=== PATIENT | female | born 1940 | race Caucasian/White ===

== ENCOUNTER 2021-03-29 08:38 | Day surgery (SDC) | payer MEDICARE, SELFPAY ==
--- NOTE | 2021-03-24 12:21 | MHC.SHP ---
Pre-Procedural Eval Section A The patient is an INPATIENT: No The History & Physical has been completed within 30 days and I have reviewed it.: Yes Section B Chief Complaint: Cataract Right Eye Allergies: Allergies Allergy/AdvReac Type Severity Reaction Status Date / Time codeine [Codeine] Allergy Mild SLEEPLESSNESS Verified 03/22/21 15:33 DUE TO NARCOLEPSY/AGITATION Plan Diagnosis/Plan: Unchanged I have reviewed the history and physical and performed a pertinent physical examination on my patient. No changes have occurred unless specified.
--- NOTE | 2021-03-26 09:41 | P.CONAN_ITS ---
Documented by User: Gena Cruz 03/26/21 14:36 HPI - Anesthesia Eval Consult details Narrative: 80yo F for Right Cataract Extraction IOL Insertion No prev cataract on record PCP cleared s/p bilat mastectomy NO IV/BP on LEFT PMFSH Past Medical History Medical History Arthritis COVID-19 vaccine administered Diabetes Elevated cholesterol History of breast cancer History of chemotherapy HTN (hypertension) Hx of cancer of lung Hx of radiation therapy Surgical History Surgical History H/O colonoscopy History of carpal tunnel release History of lumbar laminectomy Hx of amputation of lesser toe Hx of bilateral mastectomy Hx of breast lump removal Social History Social History Household Members: Family Housing: House Are you a primary direct care counselor to a significant other at home: No Do you presently have visiting nurse or other home services: No Smoking Status: Former smoker Tobacco Type: Cigarette Smoking Quit Date: 1999 Use of substances other than those prescribed or required for medical reasons: No Have you been hit, kicked, punched, or otherwise hurt by someone within the past year? If so, by whom?: No Are you DNR?: No Advance Directives Information Provided: No Recently lost weight without trying: No Eating poorly because of decreased appetite: No Nutrition Risks: Surgical patient >75years Poor oral hygiene: No (upper & lower full dentures) Meds Allergies Allergy/AdvReac Type Severity Reaction Status Date / Time codeine [Codeine] Allergy Mild SLEEPLESSNESS Verified 03/22/21 15:33 DUE TO NARCOLEPSY/AGITATION Home Medications Medication Instructions Recorded Confirmed Last Taken Type aspirin [Aspirin Low Dose] 81 mg PO DAILY 03/22/21 03/22/21 Unknown History atorvastatin 40 mg PO BEDTIME 03/22/21 03/22/21 Unknown History biotin 10,000 mcg PO DAILY 03/22/21 03/22/21 Unknown History hydrochlorothiazide 12.5 mg PO DAILY 03/22/21 03/22/21 Unknown History insulin degludec [Tresiba 18 unit SUBCUT BEDTIME 03/22/21 03/22/21 Unknown History FlexTouch U-100] lisinopril 40 mg PO DAILY 03/22/21 03/22/21 Unknown History metformin 1,000 mg PO BID 03/22/21 03/22/21 Unknown History methylphenidate HCl 5 mg PO 5XD 03/22/21 03/22/21 Unknown History Exam Exam Date and Time: March 26, 2021 0941 Height,Weight and Vital Signs: Height 5 ft 3.75 in Assessment and Plan Assessment Anesthesia Assessment: Chart Reviewed Documented by User: Jen Ford 03/29/21 10:30 [facility] Past Medical History Medical History Arthritis COVID-19 vaccine administered Diabetes Elevated cholesterol History of breast cancer History of chemotherapy HTN (hypertension) Hx of cancer of lung Hx of radiation therapy Family History Family history of problems with anesthesia: No Surgical History Surgical History H/O colonoscopy History of carpal tunnel release History of lumbar laminectomy Hx of amputation of lesser toe Hx of bilateral mastectomy Hx of breast lump removal History of Problems with Anesthesia: No Social History Social History Household Members: Family Housing: House Are you a primary direct care counselor to a significant other at home: No Do you presently have visiting nurse or other home services: No Smoking Status: Former smoker Tobacco Type: Cigarette Smoking Quit Date: 1999 Use of substances other than those prescribed or required for medical reasons: No Have you been hit, kicked, punched, or otherwise hurt by someone within the past year? If so, by whom?: No Are you DNR?: No Advance Directives Information Provided: No Recently lost weight without trying: No Eating poorly because of decreased appetite: No Nutrition Risks: Surgical patient >75years Poor oral hygiene: No (upper & lower full dentures) Meds Allergies Allergy/AdvReac Type Severity Reaction Status Date / Time codeine [Codeine] Allergy Mild SLEEPLESSNESS Verified 03/22/21 15:33 DUE TO NARCOLEPSY/AGITATION Home Medications Medication Instructions Recorded Confirmed Last Taken Type aspirin [Aspirin Low Dose] 81 mg PO DAILY 03/22/21 03/22/21 Unknown History atorvastatin 40 mg PO BEDTIME 03/22/21 03/22/21 Unknown History biotin 10,000 mcg PO DAILY 03/22/21 03/22/21 Unknown History hydrochlorothiazide 12.5 mg PO DAILY 03/22/21 03/22/21 Unknown History insulin degludec [Tresiba 18 unit SUBCUT BEDTIME 03/22/21 03/22/21 Unknown History FlexTouch U-100] lisinopril 40 mg PO DAILY 03/22/21 03/22/21 Unknown History metformin 1,000 mg PO BID 03/22/21 03/22/21 Unknown History methylphenidate HCl 5 mg PO 5XD 03/22/21 03/22/21 Unknown History Exam Height,Weight and Vital Signs: Vital Signs Temp Pulse Resp BP Pulse Ox 03/29/21 10:14 97.1 F 70 18 141/75 H 97 Pertinent Lab Results Pertinent Lab Results: POC 127 Airway Mallampati Class: II TM Dist: >3cm Neck ROM: Full Denture: Upper and Lower Heart: RRR Lungs: CTAB Assessment and Plan Assessment Anesthesia Assessment: Anesthesia Plan Discussed and Chart Reviewed Final Anesthetic Review NPO: Yes ASA Class: III Final Preanesthetic Review: No Changes in Pt Med Stat, Meds/Allgs Chart Reviewed, Consent Obtained/Reviewed and Anes Risks/Benef Reviewed Patient Risk: Intermediate Procedure Risk: Low Assessment/Block/Sedation in SS: Assess/Block/Sedation-SS Anesthetic Plan Anesthetic Plan: MAC: Disposition: Standard PACU
[2021-03-29 10:03] VITALS: BMI 26.6
[2021-03-29 10:14] VITALS: BP 141/75; PULSE 70; RESP 18; TEMP 36.2; O2SAT 97
[2021-03-29] MEDS: Lactated Ringers 500 ML 50 ML IV (10:25)
[2021-03-29] MEDS: Tetracaine HCl/PF 0.5% Oph Sol 4 ML DROPS 1 DROP EYE-RIGHT (10:25)
[2021-03-29] MEDS: Phenylephrine HCL 2.5% Oph SoL 2 ML BOTTLE 1 DROP EYE-RIGHT ×2 (10:26→10:30)
[2021-03-29] MEDS: Tropicamide 1 % Ophth Sol 3 ML BTL 1 DROP EYE-RIGHT ×3 (10:28→10:35)
[2021-03-29 10:32] LABS: Glucose, Whole Blood 127 mg/dL (60-115)
--- NOTE | 2021-03-29 11:17 | HO.PNOPHT ---
Ophthalmology Procedure Procedure Date of Service: 03/29/21 Ophthalmology Viscoelastic: Healon Duet Dual Pack Pro Ophthalmology Lenses: TECNIS [id number] (23.5) Procedure Notes: PREOPERATIVE DIAGNOSIS: Decreased visual acuity right eye secondary to cataract POSTOPERATIVE DIAGNOSIS: Same PROCEDURE: Right cataract extraction with intraocular lens insertion SURGEON: Jarvis Valdovinos M.D. ANESTHESIA: Topical/MAC ESTIMATED BLOOD LOSS: None COMPLICATIONS: None After obtaining informed consent, the patient was brought to the operating room suite and placed in the supine position. After adequate sedation per anesthesia, topical drops of Tetracaine were given to the right eye. The eye was then prepped and draped in the usual sterile fashion. The operating room microscope was then positioned over the operative eye and a lid speculum placed. A paracentesis was created. Viscoelastic was then instilled into the anterior chamber. A three plane incision was then created temporally, utilizing a 2.85 mm keratome. Capsulotomy forceps were then utilized to create a circular tear capsulotomy. Hydrodissection and hydrodelineation were carried out until adequate mobilization of the nucleus occurred. Phacoemulsification was then utilized to remove the dense central nucleus followed by removal of the cortical material utilizing the automated aspiration irrigation unit. Viscoelastic was instilled into the posterior capsular bag followed by placement of a posterior chamber intraocular lens without difficulty. The residual Viscoelastic was then removed utilizing the automated IA machine. The wound was checked and found to be watertight. The patient tolerated the procedure well and the lid speculum was removed. Intracameral injection of Vigamox 0.1 mL followed by a subtenon injection of Kenalog-40 0.2 mL were administered. The patient will be seen in the a.m.
[2021-03-29 11:39] VITALS: BP 152/70; PULSE 69; RESP 14; TEMP 36.3; O2SAT 96
== END 2021-03-29 11:59 | disposition home or self-care (01) ==
PROVIDERS: PCP Internal Medicine; Visit Provider Ophthalmology
PROC: (CPT 66985; principal; 2021-03-29 10:50)
DX: H25.11 Age-related nuclear cataract, right eye (principal); H40.033 Anatomical narrow angle, bilateral; H52.4 Presbyopia; I10 Essential (primary) hypertension; E11.9 Type 2 diabetes mellitus without complications; D64.9 Anemia, unspecified; Z85.3 Personal history of malignant neoplasm of breast; Z85.118 Personal history of other malignant neoplasm of bronchus and lung; Z92.21 Personal history of antineoplastic chemotherapy; Z92.3 Personal history of irradiation; Z79.84 Long term (current) use of oral hypoglycemic drugs; Z79.899 Other long term (current) drug therapy; Z87.891 Personal history of nicotine dependence
CPT/HCPCS: 66984; 82947; J2250; J3010; J3300; V2632

== ENCOUNTER 2021-04-12 10:26 | Day surgery (SDC) | payer MEDICARE, SELFPAY ==
[2021-03-22 15:39] VITALS: BMI 26.6
--- NOTE | 2021-04-07 12:27 | HO.ANESPROP2 ---
Documented by User: Gena Cruz 04/07/21 12:28 HPI - Anesthesia Eval Consult details Narrative: 80yo F for Left Cataract Extraction IOL Insertion Right eye 03/29/21 with TIVA: Fent 25, Midaz 1 PCP cleared s/p bilat mastectomy NO IV/BP on LEFT PMFSH Past Medical History Medical History Arthritis COVID-19 vaccine administered Diabetes Elevated cholesterol History of breast cancer History of chemotherapy HTN (hypertension) Hx of cancer of lung Hx of radiation therapy Family History Family history of problems with anesthesia: No Surgical History Surgical History H/O colonoscopy History of carpal tunnel release History of lumbar laminectomy Hx of amputation of lesser toe Hx of bilateral mastectomy Hx of breast lump removal History of Problems with Anesthesia: No Social History Social History Household Members: Family Housing: House Are you a primary college and career counselor to a significant other at home: No Do you presently have visiting nurse or other home services: No Smoking Status: Former smoker Tobacco Type: Cigarette Smoking Quit Date: 1999 Use of substances other than those prescribed or required for medical reasons: No Have you been hit, kicked, punched, or otherwise hurt by someone within the past year? If so, by whom?: No Are you DNR?: No Advance Directives Information Provided: No Recently lost weight without trying: No Eating poorly because of decreased appetite: No Nutrition Risks: Surgical patient >75years Patient : No Poor oral hygiene: No (upper 7 lower full denture) Meds Allergies Allergy/AdvReac Type Severity Reaction Status Date / Time codeine [Codeine] Allergy Mild SLEEPLESSNESS Verified 03/22/21 15:33 DUE TO NARCOLEPSY/AGITATION Home Medications Medication Instructions Recorded Confirmed Last Taken Type aspirin [Aspirin Low Dose] 81 mg PO DAILY 03/22/21 03/22/21 Unknown History atorvastatin 40 mg PO BEDTIME 03/22/21 03/22/21 Unknown History biotin 10,000 mcg PO DAILY 03/22/21 03/22/21 Unknown History hydrochlorothiazide 12.5 mg PO DAILY 03/22/21 03/22/21 Unknown History insulin degludec [Tresiba 18 unit SUBCUT BEDTIME 03/22/21 03/22/21 Unknown History FlexTouch U-100] lisinopril 40 mg PO DAILY 03/22/21 03/22/21 Unknown History metformin 1,000 mg PO BID 03/22/21 03/22/21 Unknown History methylphenidate HCl 5 mg PO 5XD 03/22/21 03/22/21 Unknown History Exam Exam Date and Time: April 07, 2021 1227 Height,Weight and Vital Signs: Height 5 ft 3.75 in Weight 69.853 kg Assessment and Plan Assessment Anesthesia Assessment: Chart Reviewed Documented by User: Jen Ford 04/12/21 12:51 PMFSH Past Medical History Medical History Arthritis COVID-19 vaccine administered Diabetes Elevated cholesterol History of breast cancer History of chemotherapy HTN (hypertension) Hx of cancer of lung Hx of radiation therapy Surgical History Surgical History H/O colonoscopy History of carpal tunnel release History of lumbar laminectomy Hx of amputation of lesser toe Hx of bilateral mastectomy Hx of breast lump removal Social History Social History Household Members: Family Housing: House Are you a primary college and career counselor to a significant other at home: No Do you presently have visiting nurse or other home services: No Smoking Status: Former smoker Tobacco Type: Cigarette Smoking Quit Date: 1999 Use of substances other than those prescribed or required for medical reasons: No Have you been hit, kicked, punched, or otherwise hurt by someone within the past year? If so, by whom?: No Are you DNR?: No Advance Directives Information Provided: No Recently lost weight without trying: No Eating poorly because of decreased appetite: No Nutrition Risks: Surgical patient >75years Patient : No Poor oral hygiene: No (upper 7 lower full denture) Meds Allergies Allergy/AdvReac Type Severity Reaction Status Date / Time codeine [Codeine] Allergy Mild SLEEPLESSNESS Verified 03/22/21 15:33 DUE TO NARCOLEPSY/AGITATION Home Medications Medication Instructions Recorded Confirmed Last Taken Type aspirin [Aspirin Low Dose] 81 mg PO DAILY 03/22/21 03/22/21 Unknown History atorvastatin 40 mg PO BEDTIME 03/22/21 03/22/21 Unknown History biotin 10,000 mcg PO DAILY 03/22/21 03/22/21 Unknown History hydrochlorothiazide 12.5 mg PO DAILY 03/22/21 03/22/21 Unknown History insulin degludec [Tresiba 18 unit SUBCUT BEDTIME 03/22/21 03/22/21 Unknown History FlexTouch U-100] lisinopril 40 mg PO DAILY 03/22/21 03/22/21 Unknown History metformin 1,000 mg PO BID 03/22/21 03/22/21 Unknown History methylphenidate HCl 5 mg PO 5XD 03/22/21 03/22/21 Unknown History Exam Height,Weight and Vital Signs: Vital Signs Temp Pulse Resp BP Pulse Ox 04/12/21 12:40 97.1 F 72 20 142/74 H 98 Pertinent Lab Results Pertinent Lab Results: Lab Results 04/12/21 Range/Units 12:30 POC Glucose 104 (60-115) mg/dL Airway Mallampati Class: II TM Dist: >3cm Neck ROM: Full Denture: Upper and Lower Heart: RRR Lungs: CTAB Assessment and Plan Assessment Anesthesia Assessment: Anesthesia Plan Discussed and Chart Reviewed Final Anesthetic Review NPO: Yes ASA Class: III Final Preanesthetic Review: No Changes in Pt Med Stat, Meds/Allgs Chart Reviewed, Consent Obtained/Reviewed and Anes Risks/Benef Reviewed Patient Risk: Intermediate Procedure Risk: Low Anesthetic Plan Anesthetic Plan: MAC: Disposition: Standard PACU
--- NOTE | 2021-04-07 14:52 | MHC.SHP ---
Pre-Procedural Eval Section A The patient is an INPATIENT: No The History & Physical has been completed within 30 days and I have reviewed it.: Yes Section B Chief Complaint: Cataract Left Eye Allergies: Allergies Allergy/AdvReac Type Severity Reaction Status Date / Time codeine [Codeine] Allergy Mild SLEEPLESSNESS Verified 03/22/21 15:33 DUE TO NARCOLEPSY/AGITATION Plan Diagnosis/Plan: Unchanged I have reviewed the history and physical and performed a pertinent physical examination on my patient. No changes have occurred unless specified.
[2021-04-12 12:32] LABS: Glucose, Whole Blood 104 mg/dL (60-115)
[2021-04-12 12:40] VITALS: BP 142/74; PULSE 72; RESP 20; TEMP 36.2; O2SAT 98
--- NOTE | 2021-04-12 12:44 | HO.PNOPHT ---
Ophthalmology Procedure Procedure Date of Service: 04/12/21 Ophthalmology Viscoelastic: Healon Duet Dual Pack Pro Ophthalmology Lenses: TECNIS [id number] (23.5) Procedure Notes: PREOPERATIVE DIAGNOSIS: Decreased visual acuity left eye secondary to cataract POSTOPERATIVE DIAGNOSIS: Same PROCEDURE: Left cataract extraction with intraocular lens insertion SURGEON: Jarvis Valdovinos M.D. ANESTHESIA: Topical/MAC ESTIMATED BLOOD LOSS: None COMPLICATIONS: None After obtaining informed consent, the patient was brought to the operation room suite and placed in the supine position. After adequate sedation per anesthesia, topical drops of Tetracaine were given to the left eye. The eye was then prepped and draped in the usual sterile fashion. The operating room microscope was then positioned over the operative eye and a lid speculum placed. A paracentesis was created. Viscoelastic was then instilled into the anterior chamber. A three plane incision was then created temporally, utilizing a 2.85 mm keratome. Capsulotomy forceps were then utilized to create a circular tear capsulotomy. Hydrodissection and hydrodelineation were carried out until adequate mobilization of the nucleus occurred. Phacoemulsification was then utilized to remove the dense central nucleus followed by removal of the cortical material utilizing the automated aspiration irrigation unit. Viscoat elastic was instilled into the posterior capsular bag followed by placement of a posterior chamber intraocular lens without difficulty. The residual Viscoat elastic was then removed utilizing the automated IA machine. The wound was check and found to be watertight. The patient tolerated the procedure well and the lid speculum was removed. Intracameral injection of Vigamox 0.1 mL followed by a subtenon injection of Kenalog-40 0.2 mL were administered. The patient will be seen in the a.m.
[2021-04-12] MEDS: Phenylephrine HCL 2.5% Oph SoL 2 ML BOTTLE 1 DROP EYE-LEFT ×3 (12:49→12:53)
[2021-04-12] MEDS: Tropicamide 1 % Ophth Sol 3 ML BTL 1 DROP EYE-LEFT ×3 (12:50→12:52)
[2021-04-12 13:20] VITALS: BP 159/78; PULSE 71; RESP 16; TEMP 36.1; O2SAT 97
== END 2021-04-12 13:25 | disposition home or self-care (01) ==
PROVIDERS: PCP Internal Medicine; Visit Provider Ophthalmology
PROC: (CPT 66985; principal; 2021-04-12 13:20)
DX: H25.12 Age-related nuclear cataract, left eye (principal); H52.4 Presbyopia; H40.033 Anatomical narrow angle, bilateral; I10 Essential (primary) hypertension; E11.9 Type 2 diabetes mellitus without complications; Z79.4 Long term (current) use of insulin; Z79.82 Long term (current) use of aspirin; Z79.899 Other long term (current) drug therapy; Z85.3 Personal history of malignant neoplasm of breast; Z85.118 Personal history of other malignant neoplasm of bronchus and lung; Z92.21 Personal history of antineoplastic chemotherapy; Z92.3 Personal history of irradiation; Z87.891 Personal history of nicotine dependence
CPT/HCPCS: 66984; 82947; J2250; J3010; J3300; V2632